=== PATIENT | male | born 1990 | race Caucasian/White ===

== ENCOUNTER 2021-06-25 15:34 | Emergency (ER) | payer BC ==
--- NOTE | 2021-06-25 16:11 | EDM.PDOC ---
ED HPI GENERAL MEDICAL PROBLEM - General Chief Complaint: Head Injury Stated Complaint: HEAD INJURY Time Seen by Provider: 06/25/21 15:45 Source of Information: Reports: Patient, RN Notes Reviewed History Limitations: Reports: No Limitations - History of Present Illness INITIAL COMMENTS - FREE TEXT/NARRATIVE: Patient is a 30-year-old male who presents to the ER for a head injury. Notes he was at work Monday, when he was struck in the left forehead by a pipe somewhat forcefully. This resulted in a laceration of his left medial eyebrow, some swelling to the area but overall he felt pretty okay. Over the last few days things have gotten a little better, swelling has relented, but he woke up this morning with a pretty intense headache that is over his left eye mainly. H e took some Tylenol at around 8 AM and this did not seem to help much. Patient states that he was not seen initially for a workplace accident, as he was told he did not have to be seen. He is denying any fevers or chills, cough or shortness of breath, nausea/vomiting/diarrhea. Further denies any neurological deficits, like blurred vision/double vision. States that he did not have any sort of drainage coming from his ears, nose, had no other facial injuries at the initial time of injury. Patient states that he has had a waterproof bandage in place to his forehead over the laceration for the last few days, when he did take this off today he noted somewhat of a strong/foul smell. There is no associated redness, or any sort of drainage coming from the wound site. Patient does not have a primary care provider in this area. 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: Home Meds Doxycycline [Vibramycin] 100 mg PO BID 10 Days #20 tab 06/25/21 [Rx] Past Medical History - Past Health History Medical/Surgical History: Denies Medical/Surgical History - Infectious Disease History Infectious Disease History: Reports: None - Past Surgical History GI Surgical History: Reports: Appendectomy Social & Family History - Tobacco Use Tobacco Use Status *Q: Never Tobacco User - Caffeine Use Caffeine Use: Reports: Soda - Recreational Drug Use Recreational Drug Use: No ED ROS GENERAL - Review of Systems Review Of Systems: Comprehensive ROS is negative, except as noted in HPI. ED EXAM, HEAD INJURY - Physical Exam Exam: See Below Exam Limited By: No Limitations General Appearance: Alert, WD/WN, No Apparent Distress Head: Normocephalic, Facial Lacerations (to left medial eyebrow area), Facial Swelling (to left medial eyebrow area). No: Alejandra's Sign, Raccoon Eyes Nexus Criteria: No: Posterior, Midline Cervical Tenderness, Evidence of Intoxication, Altered Level of Consciousness, Focal Neurological Deficit, Painful Distraction Injuries Eyes: Bilateral Eye: EOMI, Normal Inspection, PERRL Ears: Normal External Exam, Normal Canal, Hearing Grossly Normal, Normal TMs Nose: Normal Inspection, Normal Mucousa, No Blood Throat/Mouth: Normal Inspection, Normal Lips, Normal Teeth, Normal Gums, Normal Oropharynx, Normal Voice, No Airway Compromise Neck: Non-Tender, Full Range of Motion, Normal Alignment, Normal Inspection Respiratory: No Respiratory Distress, Lungs Clear, Normal Breath Sounds, No Accessory Muscle Use, Chest Non-Tender Cardiovascular: Normal Peripheral Pulses, Regular Rate, Rhythm, No Edema Extremities: Normal Inspection, Normal Capillary Refill Neurologic: No Motor/Sensory Deficits, Alert, Normal Mood/Affect, Oriented x 3 Skin: Normal Color, Warm/Dry - [place] Coma Score Best Eye Response (Lex): (4) Open Spontaneously Best Verbal Response (Lex): (5) Oriented Best Motor Response ([place]): (6) Obeys Commands [place] Total: 15 Course - Vital Signs Last Recorded V/S: Last Vital Signs Temp 97.5 F 06/25/21 15:50 Pulse 77 06/25/21 15:50 Resp 20 06/25/21 15:50 BP 142/86 H 06/25/21 15:50 Pulse Ox 100 06/25/21 15:50 - Orders/Labs/Meds Meds: Medications Discontinued Medications Generic Name Dose Route Start Last Admin Trade Name Freq PRN Reason Stop Dose Admin Ketorolac Tromethamine 30 mg 06/25/21 16:45 06/25/21 16:56 Ketorolac 30 Mg/Ml Sdv IM 06/25/21 16:46 30 mg ONETIME ONE Administration - Re-Assessments/Exams Free Text/Narrative Re-Assessment/Exam: 06/25/21 16:11 Patient presents to the ER for the evaluation of his head injury, for today's purposes we will go ahead and get a CT for evaluation. The wound itself does not appear to be infected, I did go over general management of wound cleansing, and he verbalized understanding at this time. We will go ahead and treat his headache, after the head CT has been done and he has been cleared for any sort of internal trauma. 06/25/21 16:[address] has been read, as sinus findings which could relate to acute sinusitis, but no acute intracranial abnormality appreciated. 06/25/21 17:28 Patient's headache is starting to improve. We will go ahead and discharge her home with general recommendations and a prescription for doxycycline for the sinusitis. Departure - Departure Time of Disposition: 17:01 Disposition: Home, Self-Care 01 Condition: Good Clinical Impression: Post-concussion headache Acute sinusitis Qualifiers: Sinusitis location: pansinusitis Recurrence: non-recurrent Qualified Code(s): J01.40 - Acute pansinusitis, unspecified - Discharge Information *PRESCRIPTION DRUG MONITORING PROGRAM REVIEWED*: No *COPY OF PRESCRIPTION DRUG MONITORING REPORT IN PATIENT VELMA: No Prescriptions: Doxycycline [Vibramycin] 100 mg PO BID 10 Days #20 tab Instructions: Post-Concussion Syndrome, [id number], Sinusitis, Adult, [id number] Referrals: PCP,None [Primary Care Provider] - Forms: ED Department Discharge Additional Instructions: You were evaluated in the ER today for your headache/head injury. A CT taken at today's visit, demonstrates no sign of acute bleed or fractures however it did uncover an acute sinusitis, which could be a portion of the reason why you are having headaches. Nonetheless she will be started on an antibiotic, doxycycline, 1 tab 2 times a day for the next 10 days. Please note this medication can make you somewhat sun sensitive, so if you have to be out in the sun, please use some sunscreen or cover up in order to prevent sun damage to your skin. You may take 500 mg Tylenol or 600 mg ibuprofen every 6 hours as needed for ongoing pain management. Do not exceed 4000 mg Tylenol or 32 mg ibuprofen in a 24-hour time span. You were given a prescription for doxycycline, for your sinusitis, you will need to take 1 tab 2 times a day until gone. This medication was electronically sent to the [place] pharmacy located in the [facility] grocery store. Please keep the wound on your face, cleansed with basic soap and water, when you shower, you may allow the area to be cleansed by shampoo or the water dripping over your face. This should be fine. Just do not submerge her head in water for any prolonged amounts of time. You have been given an educational handout on warning signs and symptoms regarding possible postconcussion syndrome as well, please read this at your leisure, to make yourself aware of worrisome things on one you would need to return to the ER. Please return to the ER if symptoms should change or worsen. Sepsis Event Note (ED) - Focused Exam Vital Signs: Vital Signs Temp Pulse Resp BP Pulse Ox 06/25/21 15:50 97.5 F 77 20 142/86 H 100
--- NOTE | 2021-06-25 16:32 | CT ---
Head CT Technique: Multiple axial sections were obtained through the brain. Intravenous contrast was not utilized. Reconstructed coronal and sagittal images were also obtained. Comparison: No prior intracranial imaging is available. Findings: Ventricles along with basal cisterns and sulci over the convexities are within normal limits for the patient's age. No abnormal parenchymal densities are seen. No evidence of intracranial hemorrhage is seen. No midline shift or mass-effect is seen. Bone window settings were reviewed. Mucosal thickening and questionable fluid is seen within the sinuses. Mild mucosal thickening is seen within the ethmoid sinuses. Minimal mucosal thickening is noted within the sphenoid sinuses. Visualized mastoid sinuses are clear. No acute calvarial abnormality is appreciated. Impression: 1. Sinus findings which could relate to acute sinusitis. Please correlate with the patient's symptoms. 2. No acute intracranial abnormality is appreciated. Diagnostic code #3
[2021-06-25] MEDS ORDERED: Ketorolac 30 MG/ML SDV IM ONE (16:45)
== END 2021-06-25 17:55 | disposition home or self-care (01) ==
LOC: JD.ED 15:34
DX: J01.40 Acute pansinusitis, unspecified (principal); F07.81 Postconcussional syndrome
CPT/HCPCS: 70450; 96372; 99283; J1885

== ENCOUNTER 2021-12-25 09:51 | Emergency (ER) | payer OTHER ==
[2021-12-25] MEDS ORDERED: Orphenadrine 100 MG Tab.ER PO ONE (10:26)
[2021-12-25] MEDS ORDERED: Morphine 4 MG/ML Syringe IM ONE (10:26)
== END 2021-12-25 11:50 | disposition home or self-care (01) ==
LOC: JD.ED 09:51
DX: M54.16 Radiculopathy, lumbar region (principal); Z79.899 Other long term (current) drug therapy
CPT/HCPCS: 96372; 99283; A9270; J2270

== ENCOUNTER 2023-01-10 17:48 | Emergency (ER) | payer BC, OTHER ==
[2023-01-10] MEDS ORDERED: HYDROmorphone 0.5 MG/0.5 ML Syringe IVPUSH ONE (18:37)
[2023-01-10] MEDS ORDERED: Ketorolac 30 MG/ML SDV IVPUSH ONE (19:37)
== END 2023-01-10 20:55 | disposition home or self-care (01) ==
LOC: JD.ED 17:48
DX: L03.211 Cellulitis of face (principal); Z90.49 Acquired absence of other specified parts of digestive tract
CPT/HCPCS: 36415; 70491; 80053; 80143; 85025; 96374; 96375; 99284; J1170; J1885

== ENCOUNTER 2024-11-24 19:44 | Emergency (ER) | payer BC ==
[2024-11-24] MEDS: Cyclobenzaprine 10 MG Tab PO ONE (20:28)
[2024-11-24] MEDS: Ketorolac 10 MG Tab PO ONE (20:28)
== END 2024-11-24 21:00 | disposition home or self-care (01) ==
LOC: JD.ED 19:44
DX: M77.8 Other enthesopathies, not elsewhere classified (principal); Z90.49 Acquired absence of other specified parts of digestive tract
CPT/HCPCS: 73110; 99283; A9270; 99282